=== PATIENT | male | born 1940 | race Caucasian/White ===

== ENCOUNTER → 2018-10-26 | Outpatient (CLI) | payer OTHER | LOC: BMCIMAGING 11:37 | PROVIDERS: ATTEND Emergency Medicine | DX: M23.91 Unspecified internal derangement of right knee (principal) ==

== ENCOUNTER → 2018-11-10 | Outpatient (CLI) | payer OTHER | LOC: BMCIMAGING 08:17 | PROVIDERS: ATTEND Orthopaedic Surgery | DX: M17.11 Unilateral primary osteoarthritis, right knee (principal) ==